=== PATIENT | male | born 1990 | race Caucasian/White ===

== ENCOUNTER 2017-08-01 17:24 | Emergency (ER) | payer OTHER ==
--- NOTE | 2017-08-01 17:28 | ER Report ---
History and Physical Time Seen By MD: 17:27 (DELROY HCAMBERS MD) HPI/ROS CC: Left knee pain HPI: 27-year-old male presents to the emergency Department per POV. Patient has a past medical history left anterior cruciate ligament repair by bone and joint here in town 2009. She was celebrating today when he fell and twisted his knee pop. He is able walk on his left leg. No ecchymosis or swelling. His pain is a 3 -4 out of 10. He has pain anteriorly and also in the popliteal fossa. Drawer sign is negative. Rest makes it better activity makes it worse. ROS: 12 point review of systems essentially negative other than what's mentioned in history of present illness. NURSES AND OLD MEDICAL RECORDS: Reviewed PMH: Reviewed SURGICAL HX: Reviewed FAMILY HX: Noncontributory SOCIAL HX: He denies smoking alcohol or illicit drugs. VITAL SIGNS: Reviewed CONSTITUTIONAL: Male and in minimal distress. PHYSICAL EXAM: HEENT: Pupils equal round reactive to light and accommodate, EOMI, tympanic membranes pearly white umbo present with good light reflex. Lips dry mucous membranes moist gums nonbleeding uvula midline and rises equally with phonation, oropharynx noninjected, teeth intact. NECK: Neck supple, thyroid not appreciated, anterior and posterior cervical lymphadenopathy not appreciated. Trachea midline and rises equally with phonation. CARDIAC: S1-S2 regular rate rhythm no murmurs rubs or gallops. LUNGS: Lungs clear bilaterally posteriorly in all call. Good air movement. ABDOMEN: Abdomen soft, nondistended, bowel sounds active in all 4 quadrants, no bruits noted, no CVA tenderness. MUSCULOSKELETAL: Strength 5 out of 5 x 4 extremities, no deformities noted. Negative drawer sign left knee. 2 point discrimination and sharp sensation is present left leg and foot. Capillary refill is less than 2 seconds in all 5 digits of the left foot. NEUROLOGIC: Patient alert and oriented by 3 (DELROY CHAMBERS MD) Allergies: Coded Allergies: No Known Drug Allergies (Unverified , 08/01/17) Home Meds No Active Prescriptions or Reported Meds Constitutional Vital Sign - Last 24 Hours 08/01/17 08/01/17 08/01/17 08/01/17 17:29 17:30 17:34 17:54 Temp 97.7 Pulse 101 95 Resp 18 B/P (MAP) 141/86 (104) 141/86 146/62 (90) Pulse Ox 93 O2 Delivery Room Air 08/01/17 08/01/17 08/01/17 08/01/17 18:00 18:24 18:30 18:54 Pulse 80 83 B/P (MAP) 119/51 (73) 122/53 (76) Pulse Ox 93 94 08/01/17 08/01/17 08/01/17 19:00 19:00 20:00 Pulse 76 76 B/P (MAP) 121/62 (81) 121/62 (81) 154/64 (94) Pulse Ox 94 94 (BEATA RAJPUT DO) Medical Decision Making EKG/Imaging Imaging Preliminary radiology report notes no ligament rupture. There are changes consistent with anterior cruciate ligament repair There appears to be a bone contusion. Formal reading will be completed in the morning. (BEATA RAJPUT DO) ED Course/Re-evaluation Turned Over Report given to Dr. Rajput. Please see his note for MRI results and disposition. (DELROY CHAMBERS MD) ED Course Care was assumed at shift change from Dr. Chambers with the diagnostic MRI of the knee pending. Patient has a previous history of anterior cruciate ligament repair. Radiology report was a pulmonary read from radiology that notes no obviously rupture. There appeared to be a bone contusion with some marrow edema noted. Conservative treatment plan was advised for the patient. He was offered a knee immobilizer but declined. Patient advised high-dose ibuprofen 3 times a day with food. He was offered opiate pain relievers and he declines. He is advised to rest and alternate ice and heat. Decision to Disposition Date: Aug 01, 2017 Decision to Disposition Time: 20:06 (BEATA RAJPUT DO) Depart Departure Latest Vital Signs Vital Signs Date Time Temp Pulse Resp B/P (MAP) Pulse Ox O2 Delivery O2 Flow Rate FiO2 08/01/17 20:00 76 154/64 (94) 94 08/01/17 17:30 97.7 18 Room Air (BEATA RAJPUT DO) Impression: Primary Impression: Knee sprain Additional Impression: Contusion of bone Condition: Improved Disposition: HOME OR SELF-CARE New Scripts No Active Prescriptions or Reported Meds Patient Instructions: Knee Sprain (ED) Additional Instructions: Take ibuprofen 200 mg 3 tablets 3 times a day with food Apply ice to the affected area 30 minutes 3 or 4 times per day Follow-up with orthopedics if unimproved in one week Problem Qualifiers Primary Impression: Knee sprain Encounter type: initial encounter Involved ligament of knee: unspecified ligament Laterality: left Qualified Codes: S83.92XA - Sprain of unspecified site of left knee, initial encounter DELROY CHAMBERS MD Aug 01, 2017 17:28 BEATA RAJPUT DO Aug 01, 2017 20:08
[2017-08-01 20:00] VITALS: BP 154/64
--- NOTE | 2017-08-02 12:17 | RADIOLOGY IMAGING REPORT ---
FACILITY: [facility] - [place], [place] PATIENT NAME: Adolfo Rolle : 1990 MR: [id number] V: [id number] EXAM DATE: ORDERING PHYSICIAN: DELROY HINTON TECHNOLOGIST: Location: [facility] - [place] Patient: Adolfo Rolle : 1990 Visit/Account:[id number] Date of Sevice: 08/01/2017 KNEE LEFT W/O CONTRAST DATE: 08/01/2017 5:31 PM TECHNIQUE: Multisequence, multiplanar MR imaging was performed of the knee without intravenous contra st INDICATION: Trauma with prior ACL reconstruction. COMPARISON: None FINDINGS: MENISCI: The medial meniscus is normal. The posterior root attachment of the lateral meniscus is mild ly irregular. CRUCIATES AND COLLATERALS: The PCL is normal. A few fibers of the ACL graft construct are intact, but the graft is largely torn. Normal MCL. Intact lateral collateral ligament complex. ARTICULAR CARTILAGE AND OSSEOUS STRUCTURES: There is mild to moderate marrow edema within the posterior aspect of the lateral tibial plateau at t he margin of the proximal tibiofibular articulation. Subtle T1 hypointense lines are demonstrated on sagittal images. Medial Compartment: No focal cartilage defect. Lateral Compartment: No focal cartilage defect. Patellofemoral Compartment: No focal cartilage defect. EXTENSOR MECHANISM: The quadriceps and patellar tendons are intact. The patellar retinacula are intac t. MISCELLANEOUS: Mild edema within the lateral aspect of the soleus in keeping with a strain. There is also mild edema within the extensor digitorum longus muscle in the anterior compartment. Small knee j oint effusion. IMPRESSION: 1. Marrow contusion/nondisplaced fracture involving the posterolateral aspect of the lateral tibial p lateau at the level of the proximal tibiofibular articulation. 2. Mild strain of the soleus and extensor digitorum longus muscles. 3. The ACL graft construct is largely torn, but the acuity is uncertain. 4. Small effusion. Report Dictated By: Asha Lu MD at 08/02/2017 8:14 AM Report E-Signed By: Asha Lu MD at 08/02/2017 12:13 PM WSN:[id number]
== END 2017-08-01 20:34 | disposition home or self-care (01) ==
LOC: ER 17:34
DX: S83.92XA Sprain of unspecified site of left knee, initial encounter (principal); S80.12XA Contusion of left lower leg, initial encounter
CPT/HCPCS: 73721; 99283; L1830